=== PATIENT | male | born 1945 | race Caucasian/White ===

== ENCOUNTER 2025-01-20 10:00 | Emergency (ER) | payer MEDICARE, OTHER ==
[2025-01-20] MEDS ORDERED: Amoxicillin/Clavulanate K 875-125 MG Tab ONE (11:00)
== END 2025-01-20 11:10 | disposition home or self-care (01) ==
LOC: LB.ED 10:00
DX: J01.40 Acute pansinusitis, unspecified (principal); E78.00 Pure hypercholesterolemia, unspecified; I10 Essential (primary) hypertension; J44.9 Chronic obstructive pulmonary disease, unspecified; Z95.5 Presence of coronary angioplasty implant and graft; Z88.2 Allergy status to sulfonamides; Z79.82 Long term (current) use of aspirin; Z79.899 Other long term (current) drug therapy
CPT/HCPCS: 99283; A9270-GY; J7512